=== PATIENT | male | born 1940 | race Caucasian/White ===

== ENCOUNTER → 2017-04-16 | Outpatient (CLI) | payer MEDICARE, OTHER ==
[~2017-04-16] MED LIST: ALLOPURINOL100 MG PO; ASPIR-LOW81 MG PO; ASPIRIN E.C. 8181 MG PO; HCTZ; HCTZ 25MG TAB25 MG PO; NIASPAN1000 MG PO; SINGULAIR 110 MG/TAB PO; TOPROL XL 50MG50 MG PO; TOPROL XL25 MG PO; ZANTAC; ZANTAC 150MG T150 MG PO; ZOCOR 10MG10 MG PO; ZOCOR40 MG PO; ZYLOPRIM 300MG300 MG PO
== END ==
LOC: COL.LAB 10:42
DX: Z01.812 Encounter for preprocedural laboratory examination (principal)